=== PATIENT | male | born 1935 | race Caucasian/White ===

== ENCOUNTER → 2023-06-12 12:59 | Outpatient (REF) | payer OTHER, SELFPAY | LOC: DHCBS HW 12:59 | PROVIDERS: ATTENDING PHYSICIAN Internal Medicine Cardiovascular Disease; FAMILY PHYSICIAN Family Medicine | DX: I34.1 Nonrheumatic mitral (valve) prolapse (principal); I35.0 Nonrheumatic aortic (valve) stenosis; I10 Essential (primary) hypertension | CPT/HCPCS: 93306 ==

== ENCOUNTER → 2023-12-05 11:26 | Outpatient (REF) | payer OTHER, SELFPAY | LOC: HWRCS 11:26 | PROVIDERS: ATTENDING PHYSICIAN Internal Medicine Cardiovascular Disease; FAMILY PHYSICIAN Family Medicine | DX: I35.0 Nonrheumatic aortic (valve) stenosis (principal) | CPT/HCPCS: 93306 ==

== ENCOUNTER → 2024-02-23 14:48 | Outpatient (REF) | payer OTHER, SELFPAY | LOC: RAD 14:48 | PROVIDERS: ATTENDING PHYSICIAN Family Medicine | DX: R04.2 Hemoptysis (principal) | CPT/HCPCS: 71046 ==

== ENCOUNTER → 2024-02-25 07:30 | Outpatient (REF) | payer OTHER, SELFPAY | LOC: RAD 07:30 | PROVIDERS: ATTENDING PHYSICIAN Family Medicine | DX: R04.2 Hemoptysis (principal); R91.8 Other nonspecific abnormal finding of lung field | CPT/HCPCS: 71260; Q9967 ==

== ENCOUNTER → 2024-02-27 11:55 | Outpatient (REF) | payer OTHER, SELFPAY | LOC: PET 11:55 | PROVIDERS: ATTENDING PHYSICIAN Internal Medicine Critical Care Medicine | DX: R91.8 Other nonspecific abnormal finding of lung field (principal) | CPT/HCPCS: 78815; A9552 ==

== ENCOUNTER → 2024-03-05 08:58 | Outpatient (REF) | payer OTHER, SELFPAY ==
[2024-03-05 09:33] VITALS: BP 123/80; BP_SYST 64
[2024-03-05 12:00] VITALS: BP 100/60
[2024-03-05 12:15] VITALS: BP 95/75
[2024-03-05 12:45] VITALS: BP 98/77; BP_SYST 53
== END ==
LOC: RADI 08:58
PROVIDERS: ATTENDING PHYSICIAN Internal Medicine Critical Care Medicine
DX: C34.11 Malignant neoplasm of upper lobe, right bronchus or lung (principal)
CPT/HCPCS: 88305; 32408; 70553; 71045; 81459; 87070; 87102; 87176; 87205; 87206; 88333; 88334; 88341; 88342; 99152; 99153; A9575

== ENCOUNTER → 2024-03-05 13:42 | Outpatient (REF) | payer OTHER, SELFPAY | LOC: MRI 3T 13:42 | PROVIDERS: ATTENDING PHYSICIAN Internal Medicine Critical Care Medicine; FAMILY PHYSICIAN Family Medicine | DX: R91.8 Other nonspecific abnormal finding of lung field (principal); R51.9 Headache, unspecified; R04.2 Hemoptysis | CPT/HCPCS: 70553; A9575 ==

== ENCOUNTER → 2024-04-05 10:19 | Outpatient (REF) | payer OTHER, SELFPAY ==
[2024-04-05 10:51] VITALS: BP 120/94; BP_SYST 124
[2024-04-05] MEDS: ANCEF 10 IV (11:07)
[2024-04-05 12:37] VITALS: BP 121/74
== END ==
LOC: RADI 10:19
PROVIDERS: ATTENDING PHYSICIAN Internal Medicine Hematology & Oncology; FAMILY PHYSICIAN Family Medicine
DX: C34.11 Malignant neoplasm of upper lobe, right bronchus or lung (principal)
CPT/HCPCS: 36561; 76937; 77001; 99152; 99153; C1788

== ENCOUNTER → 2024-06-16 11:19 | Outpatient (REF) | payer OTHER, SELFPAY | LOC: RAD 11:19 | PROVIDERS: ATTENDING PHYSICIAN Nurse Practitioner Acute Care; FAMILY PHYSICIAN Family Medicine | DX: C34.11 Malignant neoplasm of upper lobe, right bronchus or lung (principal) | CPT/HCPCS: 71260; Q9967 ==

== ENCOUNTER → 2024-08-31 12:16 | Outpatient (REF) | payer OTHER, SELFPAY | LOC: RAD 12:16 | PROVIDERS: ATTENDING PHYSICIAN Radiology Radiation Oncology; FAMILY PHYSICIAN Family Medicine | DX: C34.11 Malignant neoplasm of upper lobe, right bronchus or lung (principal) | CPT/HCPCS: 71260; Q9967 ==

== ENCOUNTER → 2024-10-08 11:53 | Outpatient (REF) | payer OTHER, SELFPAY | LOC: RAD 11:53 | PROVIDERS: ATTENDING PHYSICIAN Radiology Radiation Oncology; FAMILY PHYSICIAN Family Medicine | DX: C34.11 Malignant neoplasm of upper lobe, right bronchus or lung (principal) | CPT/HCPCS: 71260; 74176; Q9967 ==